=== PATIENT | female | born 1980 | race Two or more races ===

== ENCOUNTER 2023-06-09 12:56 | Emergency (ER) | payer OTHER ==
[~2023-06-09] VITALS: Ht 165.1 cm; Wt 72.6 kg
[~2023-06-09 12:56] MED LIST: ALBUTEROL; SYNTHROID50 MCG
[2023-06-09 16:05] LABS: HEMATOCRIT 29.9 % (36.0-45.00); MEAN CELL VOLUME 70.6 fL (80.00-100.00); MEAN CORPUSCULAR HEMOGLOBIN 22.4 pg (27.00-32.0); MEAN CORPUSCULAR HGB CONC 31.8 g/dl (32.0-36.0); PLATELET COUNT 256 K/uL (150-450); RED BLOOD COUNT 4.24 M/uL (4.00-6.00); RED CELL DISTRIBUTION WIDTH 17.3 % (11.5-14.5)
[2023-06-09 16:09] LABS: HEMOGLOBIN 9.5 g/dL (12.0-15.00)
[2023-06-09 16:13] LABS: PH,URINE 7.5 (5.0-8.0); URINE APPEARANCE Cloudy; URINE BILIRRUBIN Negative (NEGATIVE); URINE BLOOD Negative; URINE COLOR Yellow; URINE GLUCOSE Negative (NEGATIVE); URINE LEUKOCYTE Negative; URINE NITRATE Negative; URINE PROTEIN Negative (NEGATIVE)
[2023-06-09 16:16] LABS: URINE BACTERIA 89.4 uL (0.0-1933); URINE EPITHELIAL CELLS 10.1 uL (0.0-38.8); URINE RBC 7.9 uL (0.0-20.8); URINE WBC 2.1 uL (0.0-23.2)
[2023-06-09 16:20] LABS: CALCIUM 8.4 mg/dL (8.5-10.1); CREATININE SERUM 0.59 mg/dL (0.55-1.02); GFR 112.32; POTASSIUM 3.82 mEq/L (3.5-5.1)
[2023-06-09] MEDS ORDERED: CARAFATE1 GM PO (17:20)
[2023-06-09] MEDS ORDERED: PEPCID AC20 MG PO (17:20)
== END 2023-06-09 17:45 | disposition home or self-care (01) ==
LOC: ER 12:58
PROVIDERS: Emergency Medicine
DX: K29.70 Gastritis, unspecified, without bleeding (principal); J45.909 Unspecified asthma, uncomplicated; Z98.84 Bariatric surgery status
CPT/HCPCS: 36415; 76700; 96365; 96366; 99284; J2405; J3490; J7030

== ENCOUNTER 2023-07-11 09:53 | Emergency (ER) | payer OTHER ==
[~2023-07-11] VITALS: Ht 165.1 cm; Wt 72.6 kg
[~2023-07-11 09:53] MED LIST changes: +CARAFATE1 GM PO; +PEPCID AC20 MG PO
[2023-07-11] MEDS ORDERED: 0.9 % SODIUM CHLORIDE 1,000 ML IV SCH (11:15)
[2023-07-11] MEDS ORDERED: KETOROLAC TROMETHAMINE 30 MG VIAL IV ONE (11:15)
[2023-07-11 11:23] LABS: HEMATOCRIT 30.3 % (36.0-45.00); HEMOGLOBIN 9.7 g/dL (12.0-15.00); MEAN CELL VOLUME 67.5 fL (80.00-100.00); MEAN CORPUSCULAR HEMOGLOBIN 21.6 pg (27.00-32.0); PLATELET COUNT 310 K/uL (150-450); RED BLOOD COUNT 4.49 M/uL (4.00-6.00); RED CELL DISTRIBUTION WIDTH 16.7 % (11.5-14.5)
[2023-07-11 11:50] LABS: ALBUMIN 3.9 gm/dL (3.4-5.0); BILIRUBIN TOTAL 0.47 mg/dL (0.3-1.2); CALCIUM 9.1 mg/dL (8.5-10.1); CREATININE SERUM 0.62 mg/dL (0.55-1.02); GFR 106.08; GLOBULINA 3.4 G/DL (2.4-3.5); POTASSIUM 3.83 mEq/L (3.5-5.1); TOTAL PROTEIN 7.3 gm/dL (6.4-8.2)
== END 2023-07-11 17:43 | disposition home or self-care (01) ==
LOC: ER 09:54
PROVIDERS: General Practice
DX: R10.9 Unspecified abdominal pain (principal)
CPT/HCPCS: 36415; 74177; 96365; 96366; 99284; J1885; J7030